=== PATIENT | female | born 1950 | race Caucasian/White ===

== ENCOUNTER 2024-03-30 06:00 | Emergency (ER) | payer OTHER, MEDICARE ==
[~2024-03-30] VITALS: Ht 162.6 cm; Wt 65.0 kg
[2024-03-30] MEDS ORDERED: TRAMADOL HCL50 MG PO (07:34)
[2024-03-30 07:46] VITALS: BP 98/74
== END 2024-03-30 07:48 | disposition home or self-care (01) ==
LOC: ED 06:00
DX: S52.501A Unspecified fracture of the lower end of right radius, initial encounter for closed fracture (principal); S52.614A Nondisplaced fracture of right ulna styloid process, initial encounter for closed fracture; M25.551 Pain in right hip; W18.2XXA Fall in (into) shower or empty bathtub, initial encounter
CPT/HCPCS: 29125; 72170; 73110; 99283-25